=== PATIENT | female | born 1990 | race Caucasian/White ===

== ENCOUNTER 2017-08-03 15:01 | Outpatient (CLI) | payer OTHER | END 2017-08-03 15:02 | disposition critical access hospital (66) | LOC: EMS 15:01 | PROVIDERS: ATTEND Surgery | DX: R45.851 Suicidal ideations (principal) | CPT/HCPCS: A0425; A0429 ==

== ENCOUNTER 2017-08-03 15:25 | Emergency (ER) | payer OTHER ==
[2017-08-03 16:03] LABS: HCT - HEMATOCRIT 42.8 % (37.0-47.0); HGB - HEMOGLOBIN 14.6 g/dL (12.0-16.0); MEAN CORPUSCULAR HEMOGLOBIN 30.7 pg (27.0-31.0); MEAN CORPUSCULAR HGB CONC 34.1 g/dL (32.0-36.0); MEAN CORPUSCULAR VOLUME 89.9 fL (81.0-99.0); MEAN PLATELET VOLUME 7.6 fL (7.9-10.8); RED BLOOD COUNT 4.76 10^6/uL (4.20-5.40); RED CELL DISTRIBUTION WIDTH 13.9 % (12.0-15.0); WHITE BLOOD COUNT 10.6 x10^3/uL (4.8-10.8)
[2017-08-03 16:15] LABS: BILIRUBIN,URINE NEGATIVE (NEGATIVE); UA CHARGE (STRIP ONLY) YES; UR CULTURE IF IND NOT INDICATED
[2017-08-03 16:16] LABS: HCG UR QUAL NEGATIVE
[2017-08-03 16:18] LABS: ALBUMIN/GLOBULIN RATIO 1.4 (1.0-2.2); BILIRUBIN,TOTAL 0.7 mg/dL (0.2-1.0); BUN - BLOOD UREA NITROGEN 10 mg/dL (6-20); CALCIUM 9.7 mg/dL (8.5-10.3); CARBON DIOXIDE - CO2 23 mmol/L (21-32); CHLORIDE 99 mmol/L (101-111); CREATININE 0.7 mg/dL (0.4-1.0); GFR - MDRD 102 (>89); GLUCOSE 90 mg/dL (70-100); LIPASE 32 U/L (22-51); POTASSIUM 3.9 mmol/L (3.5-5.0); SALICYLATE < 6.0 mg/dL; SODIUM 136 mmol/L (135-145); TOTAL PROTEIN 8.1 g/dL (6.7-8.2)
[2017-08-03 17:00] LABS: ACETAMINOPHEN < 10 ug/mL (10-30)
--- NOTE | 2017-08-03 17:10 | ED Physician Documentation ---
PD HPI MHE - Stated complaint Stated Complaint: SI - Chief complaint Chief Complaint: MHE - History obtained from History obtained from: Patient - History of Present Illness Primary symptom: Suicidal ideation, Other (reactive depression) Timing - onset: Today (has had some depression and feeling lonely since moving here from her home state, following her new in the [place]. Has been here few months. Today he told her he wants a divorce. She was sad and he was worried about the degree of sadness. She denies suicidal direct statements and did not have plan level of ideation. No alcohol use.) Contributing factors: Sig other. No: Substance abuse - ETOH, Substance abuse - drugs Similar symptoms before: Has not had sx before Recently seen: Not recently seen Review of Systems Constitutional: denies: Fever Nose: denies: Rhinorrhea / runny nose, Congestion Throat: denies: Sore throat Cardiac: denies: Chest pain / pressure GI: denies: Nausea, Vomiting, Diarrhea, Bloody / black stool : denies: Missed period Skin: denies: Abrasion (s), Laceration (s) Psychiatric: reports: Depressed, Anxiety. denies: Suicidal, Homicidal, Delusions Endocrine: denies: Weight loss Immunocompromised: denies: Immunocompromised PD PAST MEDICAL HISTORY - Past Medical History Past Medical History: Yes Cardiovascular: None Neuro: None Endocrine/Autoimmune: Other Psych: Depression - Present Medications Home Medications: Ambulatory Orders Medication Instructions Recorded Confirmed metFORMIN [Glucophage] 750 mg PO DAILY 08/03/17 08/03/17 - Allergies Allergies/Adverse Reactions: Allergies Allergy/AdvReac Type Severity Reaction Status Date / Time iodine Allergy Edema Verified 08/03/17 15:36 - Social History Does the pt smoke?: No Smoking Status: Never smoker Does the pt drink ETOH?: No Does the pt have substance abuse?: No PD ED PE NORMAL - Vitals Vital signs reviewed: Yes - General General: Alert and oriented X 3, Well developed/nourished, Other (sad affect and somewhat tearful. Pleasant and conversant. ) - Neck Neck: Supple, no meningeal sign, No adenopathy, Thyroid normal - Cardiac Cardiac: RRR - Respiratory Respiratory: Clear bilaterally - Derm Derm: Normal color, Warm and dry - Neuro Neuro: Alert and oriented X 3, No motor deficit, Normal speech Eye Opening: Spontaneous Motor: Obeys Commands Verbal: Oriented GCS Score: 15 - Psych Psych: Normal affect. No: Normal mood (sad) Results - Vitals Vitals: Oxygen O2 Source Room air - Labs Labs: Laboratory Tests 08/03/17 08/03/17 08/03/17 15:57 15:57 16:01 WBC 10.6 RBC 4.76 Hgb 14.6 Hct 42.8 MCV 89.9 MCH 30.7 MCHC 34.1 RDW 13.9 Plt Count 240 MPV 7.6 L Sodium 136 Potassium 3.9 Chloride 99 L Carbon Dioxide 23 Anion Gap 14.0 H BUN 10 Creatinine 0.7 Estimated GFR (MDRD) 102 Glucose 90 Calcium 9.7 Total Bilirubin 0.7 AST 22 ALT 28 Alkaline Phosphatase 62 Total Protein 8.1 Albumin 4.7 Globulin 3.4 Albumin/Globulin Ratio 1.4 Lipase 32 Urine Color YELLOW Urine Clarity CLEAR Urine pH 6.0 Ur Specific [place] <=1.005 Urine Protein NEGATIVE Urine Glucose (UA) NEGATIVE Urine Ketones TRACE Urine Occult Blood NEGATIVE Urine Nitrite NEGATIVE Urine Bilirubin NEGATIVE Urine Urobilinogen 0.2 (NORMAL) Ur Leukocyte Esterase NEGATIVE Ur Microscopic Review NOT INDICATED Urine Culture Comments NOT INDICATED Urine HCG, Qual NEGATIVE Salicylates < 6.0 Urine Opiates Screen NEGATIVE Ur Oxycodone Screen NEGATIVE Urine Methadone Screen NEGATIVE Ur Propoxyphene Screen NEGATIVE Acetaminophen < 10 L Ur Barbiturates Screen NEGATIVE Ur Tricyclics Screen NEGATIVE Ur Phencyclidine Scrn NEGATIVE Ur Amphetamine Screen NEGATIVE U Methamphetamines Scrn NEGATIVE U Benzodiazepines Scrn NEGATIVE Urine Cocaine Screen NEGATIVE U Cannabinoids Screen NEGATIVE Ethyl Alcohol < 5.0 PD MEDICAL DECISION MAKING - ED course Complexity details: considered differential (depressed with ideation but no plan and has outlook for future plans. Seems reactive to situation. Talked on phone Crisis Line, and they set up phone calls over weekend and will get appt on Sunday. Patient okay with that and verbal agrees to no self-harm and will call Crisis Line if feeling more depressed. ), d/w patient Departure - Departure Disposition: Home, Self Care Clinical Impression: Reactive depression (situational) Depression Qualifiers: Depression Type: dysthymia Qualified Code(s): F34.1 - Dysthymic disorder Condition: Stable Record reviewed to determine appropriate education?: Yes Instructions: ED Depression Follow-Up: BREN Servin [Provider Group] Comments: Drink lots of fluids. You could use melatonin or Benadryl at night to help with sleep. Call the crisis line if you feel more stressed or any suicidal ideation so he can talk with them. They will call you tomorrow and Sunday for counseling at those times. I presume they will set up something for Sunday in in person appointment or contact the [facility] counseling services to set up an appointment otherwise. Return if worsening symptoms. No alcohol use. Some daily exercise can be helpful as well. Discharge Date/Time: 08/03/17 18:20
[2017-08-03 18:21] VITALS: BP 116/56
== END 2017-08-03 18:20 | disposition home or self-care (01) ==
LOC: ED 15:25
DX: F43.21 Adjustment disorder with depressed mood (principal); F34.1 Dysthymic disorder
CPT/HCPCS: 36415; 80053; 80306; 80307; 80320; 80329; 81001; 81003; 81025; 83690; 87086; 99283; 99284

== ENCOUNTER 2017-10-13 14:56 | Emergency (ER) | payer OTHER ==
[2017-10-13 15:40] LABS: BILIRUBIN,URINE NEGATIVE (NEGATIVE); GLUCOSE, URINE (UA) NEGATIVE (NEGATIVE); KETONES,URINE (UA) NEGATIVE (NEGATIVE); LEUKOCYTE ESTERASE, URINE NEGATIVE (NEGATIVE); NITRITE,URINE NEGATIVE (NEGATIVE); OCCULT BLOOD,URINE NEGATIVE (NEGATIVE); PH,URINE 6.5 PH (5.0-7.5); PROTEIN,URINE NEGATIVE (NEGATIVE); UROBILINOGEN,URINE 0.2 (NORMAL) E.U./dL (NORMAL)
[2017-10-13 15:46] LABS: CLARITY,URINE CLEAR (CLEAR)
[2017-10-13 15:51] LABS: BASOPHILS % (AUTO) 0.5 %; EOSINOPHILS # (AUTO) 0.2 10^3/uL (0.0-0.7); EOSINOPHILS % (AUTO) 2.2 %; LYMPHOCYTES # (AUTO) 2.4 10^3/uL (1.5-3.5); LYMPHOCYTES % (AUTO) 27.4 %; MEAN CORPUSCULAR HEMOGLOBIN 30.4 pg (27.0-31.0); MEAN CORPUSCULAR HGB CONC 33.8 g/dL (32.0-36.0); MEAN PLATELET VOLUME 7.9 fL (7.9-10.8); MONOCYTES # (AUTO) 0.8 10^3/uL (0.0-1.0); MONOCYTES % (AUTO) 9.3 %; NEUTROPHILS # (AUTO) 5.3 10^3/uL (1.5-6.6); NEUTROPHILS % (AUTO) 60.6 %; PLT - PLATELET COUNT 266 10^3/uL (130-450); RED BLOOD COUNT 4.29 10^6/uL (4.20-5.40); RED CELL DISTRIBUTION WIDTH 13.7 % (12.0-15.0); WHITE BLOOD COUNT 8.8 x10^3/uL (4.8-10.8)
--- NOTE | 2017-10-13 16:01 | ED Physician Documentation ---
History of Present Illness - Stated complaint Stated Complaint: 5 WKS/CRAMPS - Chief complaint Chief Complaint: Abd Pain - History obtained from History obtained from: Patient - History of Present Illness Timing: Today Pain level max: 3 Pain level now: 1 Improved by: time Worsened by: nothing - Additonal information Additional information: Patient is a 26-year-old female, 1 para 0 who took a recent home test which was positive. Today was breaking up a scuffle between her dogs when she felt mild cramping in her abdomen after this incident. The cramping has since resolved. She has had no vaginal bleeding or discharge. Now feels normal. Did not have any abdominal pain before the incident. Review of Systems Ten Systems: 10 systems reviewed and negative Constitutional: denies: Fever Nose: denies: Rhinorrhea / runny nose, Congestion Throat: denies: Sore throat Respiratory: denies: Cough GI: denies: Abdominal Pain, Nausea, Vomiting, Diarrhea : denies: Dysuria, Frequency, Hesitancy, Unable to Void, Incontinent, Vaginal bleeding Skin: denies: Rash Musculoskeletal: denies: Neck pain, Back pain Neurologic: denies: Headache PD PAST MEDICAL HISTORY - Past Medical History Cardiovascular: None Neuro: None Endocrine/Autoimmune: Other Psych: Depression - Present Medications Home Medications: Ambulatory Orders Medication Instructions Recorded Confirmed metFORMIN [Glucophage] 750 mg PO DAILY 08/03/17 08/03/17 - Allergies Allergies/Adverse Reactions: Allergies Allergy/AdvReac Type Severity Reaction Status Date / Time iodine Allergy Edema Verified 08/03/17 15:36 - Social History Does the pt smoke?: No Smoking Status: Never smoker Does the pt drink ETOH?: No Does the pt have substance abuse?: No PD ED PE NORMAL - Vitals Vital signs reviewed: Yes - General General: Alert and oriented X 3, No acute distress, Well developed/nourished - HEENT HEENT: Moist mucous membranes - Neck Neck: Supple, no meningeal sign - Cardiac Cardiac: RRR - Respiratory Respiratory: No respiratory distress, Clear bilaterally - Abdomen Abdomen: Soft, Non tender, Non distended - Back Back: No CVA TTP, No spinal TTP - Derm Derm: Warm and dry, No rash - Extremities Extremities: No edema - Neuro Neuro: Alert and oriented X 3 - Psych Psych: Normal mood, Normal affect Results - Vitals Vitals: Vital Signs - 24 hr 02/10/18 02/10/18 15:03 17:11 Temperature 37.1 C 37.1 C Heart Rate 71 60 Respiratory 18 16 Rate Blood Pressure 114/72 101/62 O2 Saturation 100 100 Oxygen O2 Source Room air - Labs Labs: Laboratory Tests 10/13/17 10/13/17 10/13/17 15:30 15:32 15:32 WBC 8.8 RBC 4.29 Hgb 13.0 Hct 38.6 MCV 90.0 MCH 30.4 MCHC 33.8 RDW 13.7 Plt Count 266 MPV 7.9 Neut # 5.3 Lymph # 2.4 [place] # 0.8 Eos # 0.2 Baso # 0.0 Absolute Nucleated RBC 0.00 Nucleated RBC % 0.0 Sodium Potassium Chloride Carbon Dioxide Anion Gap BUN Creatinine Estimated GFR (MDRD) Glucose Calcium Total Bilirubin AST ALT Alkaline Phosphatase Total Protein Albumin Globulin Albumin/Globulin Ratio Lipase HCG, Quant Urine Color YELLOW Urine Clarity CLEAR Urine pH 6.5 Ur Specific [place] 1.010 Urine Protein NEGATIVE Urine Glucose (UA) NEGATIVE Urine Ketones NEGATIVE Urine Occult Blood NEGATIVE Urine Nitrite NEGATIVE Urine Bilirubin NEGATIVE Urine Urobilinogen 0.2 (NORMAL) Ur Leukocyte Esterase NEGATIVE Ur Microscopic Review NOT INDICATED Urine Culture Comments NOT INDICATED Blood Type O POSITIVE 10/13/17 10/13/17 15:32 15:32 WBC RBC Hgb Hct MCV MCH MCHC RDW Plt Count MPV Neut # Lymph # [place] # Eos # Baso # Absolute Nucleated RBC Nucleated RBC % Sodium 137 Potassium 3.4 L Chloride 102 Carbon Dioxide 24 Anion Gap 11.0 BUN 7 Creatinine 0.7 Estimated GFR (MDRD) 102 Glucose 91 Calcium 9.4 Total Bilirubin 0.5 AST 33 ALT 75 H Alkaline Phosphatase 60 Total Protein 7.4 Albumin 4.3 Globulin 3.1 Albumin/Globulin Ratio 1.4 Lipase 30 HCG, Quant 1690.00 Urine Color Urine Clarity Urine pH Ur Specific [place] Urine Protein Urine Glucose (UA) Urine Ketones Urine Occult Blood Urine Nitrite Urine Bilirubin Urine Urobilinogen Ur Leukocyte Esterase Ur Microscopic Review Urine Culture Comments Blood Type PD MEDICAL DECISION MAKING - ED course Complexity details: reviewed results, re-evaluated patient, considered differential, d/w patient ED course: Patient is a 26-year-old female who presents to the emergency department with lower abdominal cramping after breaking up a fight between her dogs today. She recently found out she is . Her hCG is only 1690. Bedside ultrasound did not show any in the uterus visible at this time. She has not had any vaginal bleeding and the cramping has resolved. Will hold off on transvaginal imaging at this time and have her follow-up with her doctor for repeat hCG. She will return if she develops worsening cramping or vaginal bleeding. Patient counseled regarding signs and symptoms for which I believe and urgent re-evaluation would be necessary. Patient with good understanding of and agreement to plan and is comfortable going home at this time This document was made in part using voice recognition software. While efforts are made to proofread this document, sound alike and grammatical errors may occur. Departure - Departure Disposition: 01 Home, Self Care Clinical Impression: Qualifiers: Weeks of gestation: less than 8 weeks Qualified Code(s): Z3A.01 - Less than 8 weeks gestation of Condition: Good Instructions: ED Care Follow-Up: Jam Whalen MD [Primary Care Provider] - Within 1 week Comments: Your HCG is 1690 today, this is consistent with early . Return if you worsen including worsening pain or vaginal bleeding. Otherwise you should start on a vitamin and follow up with your doctor for further care. Discharge Date/Time: 10/13/17 17:23
[2017-10-13 16:08] LABS: ALBUMIN 4.3 g/dL (3.2-5.5); ALBUMIN/GLOBULIN RATIO 1.4 (1.0-2.2); BILIRUBIN,TOTAL 0.5 mg/dL (0.2-1.0); CALCIUM 9.4 mg/dL (8.5-10.3); CREATININE 0.7 mg/dL (0.4-1.0); TOTAL PROTEIN 7.4 g/dL (6.7-8.2)
[2017-10-13 17:12] VITALS: BP 101/62
== END 2017-10-13 17:23 | disposition home or self-care (01) ==
LOC: ED 14:56
DX: R10.30 Lower abdominal pain, unspecified (principal); Z3A.01 Less than 8 weeks gestation of pregnancy; O99.89 Other specified diseases and conditions complicating pregnancy, childbirth and the puerperium
CPT/HCPCS: 36415; 80053; 81001; 81003; 83690; 84702; 85025; 86900; 86901; 87086; 99283

== ENCOUNTER 2017-12-06 18:37 | Emergency (ER) | payer OTHER ==
[2017-12-06 19:21] LABS: BILIRUBIN,URINE NEGATIVE (NEGATIVE); GLUCOSE, URINE (UA) NEGATIVE (NEGATIVE); KETONES,URINE (UA) NEGATIVE (NEGATIVE); LEUKOCYTE ESTERASE, URINE TRACE (NEGATIVE); NITRITE,URINE NEGATIVE (NEGATIVE); OCCULT BLOOD,URINE NEGATIVE (NEGATIVE); PROTEIN,URINE NEGATIVE (NEGATIVE); UROBILINOGEN,URINE 0.2 (NORMAL) E.U./dL (NORMAL)
[2017-12-06 19:23] LABS: CLARITY,URINE CLEAR (CLEAR); HCG UR QUAL POSITIVE
[2017-12-06 19:33] LABS: BACTERIA,URINE Few /HPF (None Seen); RBC,URINE None Seen /HPF (0-5); SQUAMOUS EPITHELIAL CELL,UR MANY Squamous (<= Few)
[2017-12-06] MEDS ORDERED: NITROFURANTOIN MACRO 100 MG CAPSULE PO STA (20:28)
--- NOTE | 2017-12-06 20:40 | ED Physician Documentation ---
PD HPI FEMALE - Stated complaint Stated Complaint: NIGHT SWEATS - Chief complaint Chief Complaint: General - History obtained from History obtained from: Patient - History of Present Illness Timing - onset: How many weeks ago (1) Timing - details: Intermittant Associated symptoms: Urinary frequency. No: Fever, Abdominal pain, Pelvic pain , Vaginal bleeding Contributing factors: OB-FLIGHT AGENT History: G (1), P (0) Recently seen: Not recently seen - Additional information Additional information: patient is a 27 year old female who is presenting to the emergency department for intermittent sweats and dizziness as well as cloudy urine. Patient was found to have a blood glucose of 60 in triage and was treated with orange juice. Patient states that she is on metformin 750 mg for pecos. Patient told her pmd about the dizzy spells but told it was likely her hormones. Review of Systems Constitutional: reports: Fever, Sweats Eyes: reports: Reviewed and negative Ears: reports: Reviewed and negative Nose: reports: Reviewed and negative Throat: reports: Reviewed and negative Cardiac: denies: Chest pain / pressure, Palpitations Respiratory: denies: Dyspnea, Cough GI: denies: Abdominal Pain, Nausea, Vomiting, Constipation, Diarrhea : reports: Dysuria, Frequency Skin: denies: Rash, Lesions Musculoskeletal: reports: Back pain Neurologic: denies: Generalized weakness, Focal weakness, Syncope Immunocompromised: denies: Immunocompromised PD PAST MEDICAL HISTORY - Past Medical History Cardiovascular: None Neuro: None Endocrine/Autoimmune: Other Psych: Depression - Present Medications Home Medications: Ambulatory Orders Medication Instructions Recorded Confirmed metFORMIN [Glucophage] 750 mg PO DAILY 08/03/17 08/03/17 Nitrofurantoin Monohyd/M-Cryst 100 mg PO BID 5 Days capsule 12/06/17 [Macrobid 100 mg Capsule] Pnv95/Ferrous Fumarate/FA 12/06/17 12/06/17 [ Tablet] - Allergies Allergies/Adverse Reactions: Allergies Allergy/AdvReac Type Severity Reaction Status Date / Time iodine Allergy Edema Verified 08/03/17 15:36 - Social History Does the pt smoke?: No Smoking Status: Never smoker Does the pt drink ETOH?: No Does the pt have substance abuse?: No PD ED PE NORMAL - Vitals Vital signs reviewed: Yes - General General: Alert and oriented X 3, No acute distress - HEENT HEENT: Atraumatic, PERRL - Neck Neck: Supple, no meningeal sign - Cardiac Cardiac: RRR, No murmur - Respiratory Respiratory: No respiratory distress - Abdomen Abdomen: Soft - Derm Derm: Normal color, No rash - Extremities Extremities: No deformity - Neuro Neuro: Alert and oriented X 3, No motor deficit, Normal speech Eye Opening: Spontaneous Motor: Obeys Commands Verbal: Oriented GCS Score: 15 Results - Vitals Vitals: Vital Signs - 24 hr 12/06/17 12/06/17 18:41 20:43 Temperature 36.6 C 36.9 C Heart Rate 71 80 Respiratory 16 18 Rate Blood Pressure 119/58 L 122/63 O2 Saturation 100 99 Oxygen O2 Source Room air - Labs Labs: Laboratory Tests 12/06/17 12/06/17 19:00 20:17 POC Whole Bld Glucose 88 Urine Color YELLOW Urine Clarity CLEAR Urine pH 6.0 Ur Specific [place] 1.015 Urine Protein NEGATIVE Urine Glucose (UA) NEGATIVE Urine Ketones NEGATIVE Urine Occult Blood NEGATIVE Urine Nitrite NEGATIVE Urine Bilirubin NEGATIVE Urine Urobilinogen 0.2 (NORMAL) Ur Leukocyte Esterase TRACE H Urine RBC None Seen Urine WBC 0-3 Ur Squamous Epith Cells MANY Squamous H Urine Bacteria Few Ur Microscopic Review INDICATED Urine Culture Comments NOT INDICATED Urine HCG, Qual POSITIVE Procedures - Bedside sono Bedside sono by EMP: well appearing, active IUP PD MEDICAL DECISION MAKING - ED course Complexity details: reviewed old records, reviewed results, re-evaluated patient , considered differential, d/w patient ED course: Patient was seen and examined at bedside. urine was collected. patient's repeat blood glucose was 88. patient's urine was consistent with uti. patient was started on macrobid 100mg. bedside ultrasound was performed and showed a viable IUP. A lengthy discussion was had with the patient about better blood sugar control and decreasing the amount of metformin because she was probably suffering from hypoglycemia. Patient was well appearing, able to tolerate PO. patient required no further work up and was stable for discharge with outpatient follow up. Departure - Departure Disposition: 01 Home, Self Care Clinical Impression: Urinary tract infection Condition: Good Instructions: ED UTI Cystitis Female Follow-Up: primary,care provider [Other] - Within 3 Days Prescriptions: Nitrofurantoin Monohyd/M-Cryst [Macrobid 100 mg Capsule] 100 mg PO BID 5 Days capsule Comments: Your symptoms are being caused by likely two things, a urinary tract infection and low blood sugar. You should increase your fluid intake and take the antibiotics twice a day for the next 5 days. You should also decrease your metformin to 500 mg a day or take the 750mg every other day. You should also increase your caloric intake. You should follow up with your pmd. You may return to the emergency department at any time for new, worsening or uncontrollable symptoms. Discharge Date/Time: 12/06/17 20:43
[2017-12-06 20:44] VITALS: BP 122/63
== END 2017-12-06 20:43 | disposition home or self-care (01) ==
LOC: ED 18:37
DX: O23.40 Unspecified infection of urinary tract in pregnancy, unspecified trimester (principal); O99.280 Endocrine, nutritional and metabolic diseases complicating pregnancy, unspecified trimester; E16.2 Hypoglycemia, unspecified; Z79.84 Long term (current) use of oral hypoglycemic drugs
CPT/HCPCS: 81001; 81025; 99283; A9270; 81003; 87086

== ENCOUNTER 2018-01-04 14:44 | Emergency (ER) | payer OTHER ==
[2018-01-04 14:52] VITALS: BP 123/72
--- NOTE | 2018-01-04 15:05 | ED Physician Documentation ---
History of Present Illness - Stated complaint Stated Complaint: FEMALE /16WK OB - Chief complaint Chief Complaint: Abd Pain - History obtained from History obtained from: Patient, Family - History of Present Illness Timing: Other (G1 at 16 weeks gestation without problems in this so far presents with 2 days of sore throat and about 4 days of bilateral flank pain and dysuria and frequency without measured fevers. No nausea.) Review of Systems Constitutional: reports: Sweats. denies: Fever, Chills Nose: reports: Rhinorrhea / runny nose Throat: reports: Sore throat GI: denies: Abdominal Pain, Nausea, Vomiting, Diarrhea PD PAST MEDICAL HISTORY - Past Medical History Cardiovascular: None Neuro: None Endocrine/Autoimmune: Other Psych: Depression - Present Medications Home Medications: Ambulatory Orders Medication Instructions Recorded Confirmed Pnv95/Ferrous Fumarate/FA 12/06/17 12/06/17 [ Tablet] - Allergies Allergies/Adverse Reactions: Allergies Allergy/AdvReac Type Severity Reaction Status Date / Time iodine Allergy Edema Verified 01/04/18 14:51 - Social History Does the pt smoke?: No Smoking Status: Never smoker Does the pt drink ETOH?: No Does the pt have substance abuse?: No PD ED PE NORMAL - Vitals Vital signs reviewed: Yes - General General: Alert and oriented X 3, No acute distress - HEENT HEENT: Other (Tonsils look okay but she does have moderate anterior cervical adenopathy, TMs are normal.) - Neck Neck: Supple, no meningeal sign, No bony TTP - Cardiac Cardiac: RRR, No murmur - Respiratory Respiratory: No respiratory distress, Clear bilaterally - Abdomen Abdomen: Normal bowel sounds, Soft, Non tender - Female Female : Other (Bedside ultrasound demonstrates single live intrauterine with heart rate of 150) - Derm Derm: No rash - Extremities Extremities: No edema, No calf tenderness / cord - Neuro Neuro: Alert and oriented X 3, Normal speech Results - Vitals Vitals: Vital Signs - 24 hr 01/04/18 14:49 Temperature 36.3 C L Heart Rate 73 Respiratory 16 Rate Blood Pressure 123/72 O2 Saturation 100 Oxygen O2 Source Room air - Labs Labs: Laboratory Tests 01/04/18 15:00 Urine Color YELLOW Urine Clarity CLEAR Urine pH 6.0 Ur Specific [place] 1.015 Urine Protein NEGATIVE Urine Glucose (UA) NEGATIVE Urine Ketones NEGATIVE Urine Occult Blood NEGATIVE Urine Nitrite NEGATIVE Urine Bilirubin NEGATIVE Urine Urobilinogen 0.2 (NORMAL) Ur Leukocyte Esterase NEGATIVE Ur Microscopic Review NOT INDICATED Urine Culture Comments NOT INDICATED Departure - Departure Disposition: 01 Home, Self Care Clinical Impression: Viral URI Qualifiers: Weeks of gestation: 16 weeks Qualified Code(s): Z3A.16 - 16 weeks gestation of Condition: Good Record reviewed to determine appropriate education?: Yes Instructions: ED Viral Syndrome Comments: Tylenol as needed for pain or fever. Drink plenty of fluids. Return if worsening or new symptoms develop.
[2018-01-04 15:22] LABS: BILIRUBIN,URINE NEGATIVE (NEGATIVE); GLUCOSE, URINE (UA) NEGATIVE (NEGATIVE); KETONES,URINE (UA) NEGATIVE (NEGATIVE); LEUKOCYTE ESTERASE, URINE NEGATIVE (NEGATIVE); NITRITE,URINE NEGATIVE (NEGATIVE); OCCULT BLOOD,URINE NEGATIVE (NEGATIVE); PROTEIN,URINE NEGATIVE (NEGATIVE); UROBILINOGEN,URINE 0.2 (NORMAL) E.U./dL (NORMAL)
[2018-01-04 15:23] LABS: CLARITY,URINE CLEAR (CLEAR)
== END 2018-01-04 15:54 | disposition home or self-care (01) ==
LOC: ED 14:44
DX: J06.9 Acute upper respiratory infection, unspecified (principal); O26.892 Other specified pregnancy related conditions, second trimester; Z3A.16 16 weeks gestation of pregnancy
CPT/HCPCS: 81001; 81003; 87070; 87086; 87430; 99282; 99283

== ENCOUNTER 2018-01-14 08:00 | Outpatient (CLI) | payer OTHER ==
[2018-01-14 13:30] LABS: THYROID STIMULATING HORMONE 1.8 uIU/mL (0.34-5.60)
[2018-01-14 13:34] LABS: FREE T4 (FREE THYROXINE) 0.5 ng/dL (0.58-1.64); HEMOGLOBIN A1C 0.39 g/dL; HEMOGLOBIN A1C % 4.9 % (4.6-6.2)
[2018-01-14 14:40] LABS: MEAN CORPUSCULAR HEMOGLOBIN 30.3 pg (27.0-31.0); MEAN CORPUSCULAR HGB CONC 33.3 g/dL (32.0-36.0); MEAN PLATELET VOLUME 8.7 fL (7.9-10.8); RED BLOOD COUNT 3.95 10^6/uL (4.20-5.40); RED CELL DISTRIBUTION WIDTH 14.7 % (12.0-15.0)
== END 2018-01-14 08:01 | disposition home or self-care (01) ==
LOC: LAB.N 08:00
PROVIDERS: ATTEND Obstetrics & Gynecology
DX: Z36.89 Encounter for other specified antenatal screening (principal)
CPT/HCPCS: 36415; 81599; 82105; 82677; 82947; 82950; 83036; 84439; 84443; 84481; 84702; 85027; 86336

== ENCOUNTER 2018-01-25 07:38 | Outpatient (CLI) | payer OTHER ==
--- NOTE | 2018-01-25 14:40 | Ultrasound Report ---
OB ULTRASOUND: 01/25/2018 CLINICAL INDICATION: anatomy. TECHNIQUE: Real-time scanning was performed with workforce services representative static images obtained. LAST MENSTRUAL PERIOD: 09/06/2017 Clinical Age: 20 weeks 1 day US Age: 20 weeks 4 days EFW [place]: 355 grams EFW% [place]: 63% Heart Rate: 146 bpm EDC: 06/13/2018 US EDC: 06/10/2018 BPD [place]: 21 weeks 0 days; Mean mm 49 HC Had[place]: 20 weeks 4 days; Mean mm 181 AC Hadlock: 20 weeks 5 days; Mean mm 155 FL Had[place]: 20 weeks 1 day; Mean mm 32 Presentation: cephalic Placental Location: posterior Cervical Length: TA 4.68 cm Amniotic Fluid: KEMI 14.6 cm; subjectively normal; MVP 4.4 cm FINDINGS There is a single viable intrauterine gestation, in cephalic presentation. heart rate is 146 BPM. The placenta is posterior, without evidence of previa. Amniotic fluid volume is subjectively normal with the deepest pocket of 4.4 cm. By size, the fetus measures 20 weeks 4 days (20 weeks 1 day provided DATA) the normal limbs. The following anatomic structures were visualized and appear normal: The intracranial contents, including the ventricles and posterior fossa; the lips and orbits; the spine; the heart, including 4 chamber view and left ventricular outflow tract, and diaphragm; the abdominal contents, including the stomach, the bilateral kidneys, and urinary bladder, as well as a normal 3-vessel cord insertion; 4 limbs. The right ventricular outflow tract is suboptimally visualized, due to positioning. No free fluid or adnexal lesion is appreciated. IMPRESSION: SINGLE VIABLE INTRAUTERINE GESTATION, WITH SIZE IN KEEPING WITH THE PROVIDED DATING. SUBOPTIMAL VISUALIZATION OF THE RIGHT VENTRICULAR OUTFLOW TRACT, DUE TO POSITIONING, BUT THE REMAINDER OF THE ANATOMIC SURVEY IS UNREMARKABLE. TD: 01/25/2018 10:15 [facility]
== END 2018-01-25 07:39 | disposition home or self-care (01) ==
LOC: DI 07:38
PROVIDERS: ATTEND Obstetrics & Gynecology
DX: Z36.89 Encounter for other specified antenatal screening (principal)
CPT/HCPCS: 76811

== ENCOUNTER 2018-03-12 14:22 | Outpatient (CLI) | payer OTHER ==
[2018-03-12 16:00] LABS: BASOPHILS % (AUTO) 0.2 %; EOSINOPHILS % (AUTO) 1.3 %; HGB - HEMOGLOBIN 12.3 g/dL (12.0-16.0); LYMPHOCYTES % (AUTO) 16.3 %; MEAN CORPUSCULAR HEMOGLOBIN 31.7 pg (27.0-31.0); MEAN CORPUSCULAR HGB CONC 33.5 g/dL (32.0-36.0); MEAN CORPUSCULAR VOLUME 94.7 fL (81.0-99.0); MEAN PLATELET VOLUME 7.8 fL (7.9-10.8); NEUTROPHILS % (AUTO) 75.2 %; PLT - PLATELET COUNT 249 10^3/uL (130-450); RED BLOOD COUNT 3.89 10^6/uL (4.20-5.40); RED CELL DISTRIBUTION WIDTH 14.6 % (12.0-15.0); WHITE BLOOD COUNT 10.9 x10^3/uL (4.8-10.8)
[2018-03-12 16:04] LABS: ABNORMAL LYMPHS % (MANUAL) 0 %
[2018-03-12 16:21] LABS: BAND NEUTROPHILS % (MANUAL) 2 %; DIFFERENTIAL COMMENT MANUAL DIFFERENTIAL; LYMPHOCYTES # (MANUAL) 1.6 10^3/uL (1.5-3.5); LYMPHOCYTES % (MANUAL) 15 %; MONOCYTES # (MANUAL) 0.2 10^3/uL (0.0-1.0); NEUTROPHILS % (MANUAL) 81 %; PLATELET ESTIMATE, MANUAL NORMAL (130-450,000) (NORMAL); PLATELET MORPHOLOGY NORMAL APPEARANCE (NORMAL); RBC MORPHOLOGY (MULTIPLE) NORMAL APPEARANCE (NORMAL)
== END 2018-03-12 14:23 | disposition home or self-care (01) ==
LOC: LAB 14:22
PROVIDERS: ATTEND Obstetrics & Gynecology
DX: Z34.90 Encounter for supervision of normal pregnancy, unspecified, unspecified trimester (principal)
CPT/HCPCS: 36415; 82950; 85025; 86850

== ENCOUNTER 2018-04-18 08:48 | Outpatient (CLI) | payer OTHER ==
--- NOTE | 2018-04-18 16:33 | Ultrasound Report ---
Procedure Date: 04/18/2018 Accession Number: [id number] / [id number] Procedure: US - OB F/U or Repeat CPT Code: FULL RESULT: EXAM: COMPLETE OBSTETRICAL ULTRASOUND. EXAM DATE: 04/18/2018 10:04 AM. CLINICAL HISTORY: Completion of anatomic survey, previously the right ventricular outflow tract was not adequately visualized. COMPARISON: 01/25/2018. TECHNIQUE: Real-time sonographic evaluation of the fetus performed by the rehab care assistant. Multiple medical service representative static images were saved for review. DATING: Established EGA weeks/days with MICKI 06/10/2018 based on first ultrasound dated 01/25/2018. EGA weeks/days with MICKI 05/27/2018 based on the current ultrasound. GENERAL EVALUATION [place] . Cardiac activity: 152 bpm. movement: Visualized. Presentation: Cephalic. Placenta: Posterior and anterior wrap near fundus position. No evidence for previa. Umbilical cord: 3 vessel cord. Central placental cord origin. Amniotic fluid: Subjectively normal. MVP 5.3 cm. BIOMETRY Bi-Parietal Diameter (BPD): 8.8 cm, weeks/days Head Circumference (HC): 31.5 cm, weeks/days Abdominal Circumference (AC): 31.4 cm, weeks/days Femur Length (FL): 6.2 cm, weeks/days Estimated Weight: 2454 gm. ANATOMY Completion of the anatomy survey was performed with good visualization of the right ventricular outflow tract which appeared normal. MATERNAL STRUCTURES Uterus: Unremarkable. Cervix: Long and closed. Transabdominal length 3.4 cm. Right ovary/adnexa: Unremarkable. Left ovary/adnexa: 3.9 x 2.6 x 2.5 cm cyst. Free fluid: None. IMPRESSION: 1. [place] live intrauterine with gestational age weeks/days based on the current ultrasound. 2. Estimated weight is within expected limits for assigned dating. 3. Normal right ventricular outflow tract. No anatomic abnormalities are detected at this time. RADIA
== END 2018-04-18 08:49 | disposition home or self-care (01) ==
LOC: DI 08:48
PROVIDERS: ATTEND Obstetrics & Gynecology
DX: Z36.2 Encounter for other antenatal screening follow-up (principal)
CPT/HCPCS: 76816

== ENCOUNTER 2018-04-30 23:11 | Outpatient (CLI) | payer OTHER ==
[2018-04-30 23:35] LABS: BILIRUBIN,URINE NEGATIVE (NEGATIVE); GLUCOSE, URINE (UA) NEGATIVE (NEGATIVE); KETONES,URINE (UA) NEGATIVE (NEGATIVE); LEUKOCYTE ESTERASE, URINE NEGATIVE (NEGATIVE); NITRITE,URINE NEGATIVE (NEGATIVE); OCCULT BLOOD,URINE NEGATIVE (NEGATIVE); PROTEIN,URINE NEGATIVE (NEGATIVE); UROBILINOGEN,URINE 0.2 (NORMAL) E.U./dL (NORMAL)
[2018-04-30 23:36] LABS: CLARITY,URINE CLEAR (CLEAR)
[2018-04-30 23:40] VITALS: BP 130/69
[2018-04-30 23:41] LABS: BACTERIA,URINE Rare /HPF (None Seen); RBC,URINE 0-5 /HPF (0-5); SQUAMOUS EPITHELIAL CELL,UR FEW Squamous (<= Few)
[2018-05-01] MEDS ORDERED: TERBUTALINE 1 MG/ML VIAL SUBQ ONE (01:16)
== END 2018-05-01 02:30 | disposition home or self-care (01) ==
LOC: WFO 23:11 → FBP 23:13 → WFO 05-01 02:30
PROVIDERS: ATTEND Obstetrics & Gynecology
DX: O99.89 Other specified diseases and conditions complicating pregnancy, childbirth and the puerperium (principal); M54.9 Dorsalgia, unspecified; R14.0 Abdominal distension (gaseous); Z3A.33 33 weeks gestation of pregnancy
CPT/HCPCS: 81001; 82731; 87086; 96372; 99213

== ENCOUNTER 2018-05-09 15:41 | Outpatient (CLI) | payer OTHER ==
[2018-05-09 16:12] LABS: BILIRUBIN,URINE NEGATIVE (NEGATIVE); GLUCOSE, URINE (UA) NEGATIVE (NEGATIVE); KETONES,URINE (UA) NEGATIVE (NEGATIVE); LEUKOCYTE ESTERASE, URINE NEGATIVE (NEGATIVE); NITRITE,URINE NEGATIVE (NEGATIVE); OCCULT BLOOD,URINE NEGATIVE (NEGATIVE); PROTEIN,URINE NEGATIVE (NEGATIVE); UROBILINOGEN,URINE 0.2 (NORMAL) E.U./dL (NORMAL)
[2018-05-09 16:14] LABS: BASOPHILS % (AUTO) 0.4 %; EOSINOPHILS % (AUTO) 1.2 %; LYMPHOCYTES % (AUTO) 17.1 %; MEAN CORPUSCULAR HEMOGLOBIN 30.7 pg (27.0-31.0); MEAN CORPUSCULAR HGB CONC 33.8 g/dL (32.0-36.0); MEAN CORPUSCULAR VOLUME 90.8 fL (81.0-99.0); MEAN PLATELET VOLUME 8.4 fL (7.9-10.8); MONOCYTES % (AUTO) 11.7 %; NEUTROPHILS % (AUTO) 69.6 %; PLT - PLATELET COUNT 233 10^3/uL (130-450); RED BLOOD COUNT 4.22 10^6/uL (4.20-5.40); RED CELL DISTRIBUTION WIDTH 14.5 % (12.0-15.0); WHITE BLOOD COUNT 9.5 x10^3/uL (4.8-10.8)
[2018-05-09 16:16] LABS: CREATININE 0.6 mg/dL (0.4-1.0); URIC ACID 3.5 mg/dL (2.6-7.2)
[2018-05-09 16:22] LABS: CREATININE,URINE 75.8 mg/dL; PROTEIN/CREATININE RATIO,URINE 0.2 (<=0.2)
[2018-05-09 16:31] LABS: BACTERIA,URINE None Seen /HPF (None Seen); CLARITY,URINE CLEAR (CLEAR); RBC,URINE None Seen /HPF (0-5); SQUAMOUS EPITHELIAL CELL,UR MOD Squamous (<= Few)
[2018-05-09 17:07] LABS: ABNORMAL LYMPHS % (MANUAL) 0 %; BAND NEUTROPHILS % (MANUAL) 2 %; EOSINOPHILS # (MANUAL) 0.3 10^3/uL (0-0.7); LYMPHOCYTES % (MANUAL) 7 %; MONOCYTES # (MANUAL) 1.6 10^3/uL (0.0-1.0); NEUTROPHILS # (MANUAL) 6.6 10^3/uL (1.5-6.6); NEUTROPHILS % (MANUAL) 67 %
[2018-05-09 17:08] LABS: DIFFERENTIAL COMMENT MANUAL DIFFERENTIAL; PLATELET ESTIMATE, MANUAL NORMAL (130-450,000) (NORMAL); PLATELET MORPHOLOGY NORMAL APPEARANCE (NORMAL); RBC MORPHOLOGY (MULTIPLE) 1+ POLYCHROMASIA (NORMAL)
== END 2018-05-09 15:42 | disposition home or self-care (01) ==
LOC: LAB 15:41
PROVIDERS: ATTEND Obstetrics & Gynecology
DX: Z36.88 Encounter for antenatal screening for fetal macrosomia (principal); Z36.9 Encounter for antenatal screening, unspecified
CPT/HCPCS: 36415; 81001; 82565; 82570; 83615; 84156; 84450; 84550; 85025

== ENCOUNTER 2018-05-10 08:00 | Outpatient (CLI) | payer OTHER | END 2018-05-10 08:01 | disposition home or self-care (01) | LOC: LAB.R 08:00 | PROVIDERS: ATTEND Obstetrics & Gynecology | DX: Z36.85 Encounter for antenatal screening for Streptococcus B (principal) | CPT/HCPCS: 87797 ==

== ENCOUNTER 2018-05-15 09:16 | Outpatient (CLI) | payer OTHER ==
--- NOTE | 2018-05-15 14:15 | Ultrasound Report ---
Reason: ENCOUNTER FOR SCREENING FOR MACROS Procedure Date: 05/15/2018 Accession Number: [id number] / [id number] Procedure: US - OB F/U or Repeat CPT Code: FULL RESULT: EXAM: LIMITED FOLLOW-UP OBSTETRIC ULTRASOUND EXAM DATE: 05/15/2018 10:31 AM. CLINICAL HISTORY: Size greater than dates COMPARISON: None. TECHNIQUE: Real-time sonographic evaluation of the fetus performed by the coldfusion. Multiple employment program representative static images were saved for review. DATING: Established EGA 32 weeks 0 days with MICKI 06/13/2018 based on LMP. EGA 36 weeks 2 days with MICKI 06/10/2018 based on prior ultrasound. EGA 39 weeks 3 days with MICKI 05/19/2018 based on the current ultrasound. GENERAL EVALUATION [place] . Cardiac activity: 154 bpm. movement: Visualized. Presentation: Cephalic. Placenta: Posterior fundal position. No evidence for previa. Amniotic fluid: Subjectively normal. MVP 3.7 cm. BIOMETRY Bi-Parietal Diameter (BPD): 9.8 cm, 40 weeks 0 days Head Circumference (HC): 34.6 cm, 40 weeks 1 day Abdominal Circumference (AC): 37.9 cm, 41 weeks 6 days Femur Length (FL): 6.9 cm, 35 weeks 3 days Estimated Weight: 4024 gm, greater than 97th percentile. Maternal: Adnexae unremarkable. No free fluid. Cervix 3.9 cm. IMPRESSION: 1. [place] live intrauterine with gestational age 39 weeks 3 days based on current ultrasound. 2. EGA 36 weeks 2 days based on ultrasound 01/25/2018 3. Estimated weight greater than 97th percentile, concerning for possible macrosomia. May consider subspecialty consultation as indicated. RADIA
== END 2018-05-15 09:17 | disposition home or self-care (01) ==
LOC: DI 09:16
PROVIDERS: ATTEND Obstetrics & Gynecology
DX: Z36.88 Encounter for antenatal screening for fetal macrosomia (principal); Z3A.39 39 weeks gestation of pregnancy
CPT/HCPCS: 76816

== ENCOUNTER 2018-05-30 14:16 | Outpatient (CLI) | payer OTHER ==
[2018-05-30 14:33] VITALS: BP 134/76
--- NOTE | 2018-05-30 18:01 | Ultrasound Report ---
Reason: uterine size greater than dates Procedure Date: 05/30/2018 Accession Number: [id number] / [id number] Procedure: US - OB F/U or Repeat CPT Code: FULL RESULT: EXAM: OB ULTRASOUND LIMITED EXAM DATE: 05/30/2018 04:43 PM. CLINICAL HISTORY: Size greater than dates. COMPARISON: OB follow-up or repeat 05/15/2018 10:10 AM. TECHNIQUE: Real-time sonographic evaluation of the fetus performed by the credit risk management director. Multiple direct sales representative static images were saved for review. Additional transvaginal imaging to more accurately evaluate cervical length/placental position/etc. DATING: Established EGA 38 weeks, 0 days with MICKI 06/13/18 based on LMP. EGA 39 weeks, 4 days with MICKI 06/02/18 based on the current ultrasound. GENERAL EVALUATION [place] . Cardiac activity: 137 bpm. movement: Visualized. Presentation: Cephalic. Placenta: Posterior fundal position. Amniotic fluid: KEMI measures 17 cm. MVP 6.7 cm. Within normal limits. BIOMETRY Bi-Parietal Diameter (BPD): 10.0 cm, 41 weeks, 5 days. Head Circumference (HC): 36.1 cm, greater than 98%. Abdominal Circumference (AC): 41.1 cm, greater than 98%. Femur Length (FL): 7.3 cm, 37 weeks, 3 days. Estimated Weight: 4998 gm, greater than 97% percentile. IMPRESSION: 1. Single living intrauterine measuring 39 weeks 4 days based on today's ultrasound, MICKI 06/02/2018. Established EGA is 38 weeks 0 days, MICKI 06/13/2018. Estimated Weight: 4998 gm, greater than 97% percentile. Head circumference and abdominal circumference measure greater than the 98th percentile. RADIA
== END 2018-05-30 18:07 | disposition home or self-care (01) ==
LOC: WFO 14:16 → FBP 14:19 → WFO 18:07
PROVIDERS: ATTEND Obstetrics & Gynecology
DX: O36.63X0 Maternal care for excessive fetal growth, third trimester, not applicable or unspecified (principal); Z3A.38 38 weeks gestation of pregnancy
CPT/HCPCS: 59025; 76816; 87491; 87591; 99214

== ENCOUNTER 2018-06-07 05:32 | Inpatient (IN) | payer OTHER ==
--- NOTE | 2018-05-30 19:49 | PREOP HISTORY & PHYSICAL ---
DATE OF SERVICE: 06/07/2018 Physician: Ellie Rodarte MD PREOPERATIVE HISTORY AND PHYSICAL 05/30/2018 FOR DATE OF PLANNED PROCEDURE OF 06/07/2018. CHIEF COMPLAINT: Big. HISTORY OF PRESENT ILLNESS: The patient has been measuring large for dates in clinic. Two weeks ago, she was found to be carrying a 9-pound fetus. Today at 38 weeks, she was measuring 44 cm, and so she was sent to triage for further evaluation. An ultrasound today, 05/30/2018, reveals a fetus that is 4998 grams, 11 pounds. This is greater than the 97th percentile. Her amniotic fluid index was 10 with a maximal vertical pocket of 6 and the fetus is in vertex presentation. REVIEW OF SYSTEMS: No vaginal bleeding. No leaking of water. Good movement. She is feeling some irregular contractions. PAST MEDICAL HISTORY 1. Obesity. 2. PCOS. 3. Anxiety. PAST SURGICAL HISTORY: [place] teeth. ALLERGIES: IODINE CAUSES THROAT SWELLING. NO MEDICATION ALLERGIES. NO LATEX ALLERGY. SOCIAL HISTORY: No tobacco, alcohol, or drug use. The patient is to a gentleman in the [place]. FAMILY HISTORY: No anesthesia problems. OB HISTORY: The patient is a G1, P0 with a due date of 06/13/2018 by an LMP consistent with a 19-week ultrasound. She did not have care until her 18th week of . Her has been uncomplicated other than the large baby. Her anatomy ultrasound was normal. LABORATORY: Data include blood type O positive, antibody screen negative, rubella immune. Quad screen normal 1 hour 09/30/2017. Second trimester platelets 217. TSH 1.8. Negative HIV, negative hepatitis B, negative RPR. PHYSICAL EXAMINATION GENERAL: Patient is afebrile with normal vital signs. She is alert and pleasant, in no apparent distress. She appears very large for dates. HEART: Regular rate and rhythm without clicks, rubs, gallops, or murmurs. CHEST: Lungs are clear to auscultation bilaterally. ABDOMEN: Soft and nontender. IMPRESSION AND PLAN: G1 with macrosomia. She is not diabetic and had a normal 1-hour glucose tolerance test despite her having PCOS. The fetus is measuring 5 kg. The patient was offered primary section in attempt to avoid risks related to shoulder dystocia and complications from that including oxygen deprivation to the brain causing permanent neurological problems or . She is aware that she can have a trial of labor should she choose to, but sometimes we do not know that things are going to be wrong until after the baby's head is out. She, herself, was a 10-pound baby at , and her mother had a very difficult time with this. Both the patient and her mother are really wanting to go ahead with a primary . The surgery was described. Risks including, but not limited to bleeding; infection; trauma to local organs, anesthesia complications and problems with future pregnancies because of scar tissue on the uterus were discussed. The patient was initially wanting 4 children. Now, she is thinking about having more like 2. She is aware that the increased number of C-sections does increase her risk. We reviewed the postoperative course. All questions were answered and operative consent was signed. We will plan to go to the operating room on 06/07/2018 when the patient is 39 weeks and 1 day. There are no potential problems identified except for an increased risk of wound infection, which the patient is aware of. She has had her Tdap vaccine and her flu shot. She is O positive and rubella immune. TD: 05/30/2018 18:30 IRMA
[2018-06-07] MEDS ORDERED: ceFAZolin 2 GM/50 ML 2 GM/50 ML BAG IV SCH (06:00)
[2018-06-07] MEDS ORDERED: LACTATED RINGERS 1,000 ML IV ONE ×3 (06:30→09:20)
[2018-06-07] MEDS ORDERED: SODIUM CHLORIDE FLUSH 0.9% 10 ML SYRINGE ONE (06:34)
[2018-06-07 07:17] LABS: BASOPHILS # (AUTO) 0.1 10^3/uL (0.0-0.1); BASOPHILS % (AUTO) 0.5 %; EOSINOPHILS # (AUTO) 0.1 10^3/uL (0.0-0.7); EOSINOPHILS % (AUTO) 1.3 %; HGB - HEMOGLOBIN 12.7 g/dL (12.0-16.0); LYMPHOCYTES # (AUTO) 1.7 10^3/uL (1.5-3.5); LYMPHOCYTES % (AUTO) 17.1 %; MEAN CORPUSCULAR HEMOGLOBIN 30.8 pg (27.0-31.0); MEAN CORPUSCULAR HGB CONC 33.8 g/dL (32.0-36.0); MEAN PLATELET VOLUME 8.5 fL (7.9-10.8); MONOCYTES # (AUTO) 0.8 10^3/uL (0.0-1.0); MONOCYTES % (AUTO) 8.2 %; NEUTROPHILS # (AUTO) 7.1 10^3/uL (1.5-6.6); NEUTROPHILS % (AUTO) 72.9 %; PLT - PLATELET COUNT 210 10^3/uL (130-450); RED BLOOD COUNT 4.14 10^6/uL (4.20-5.40); RED CELL DISTRIBUTION WIDTH 14.9 % (12.0-15.0); WHITE BLOOD COUNT 9.8 x10^3/uL (4.8-10.8)
--- NOTE | 2018-06-07 07:24 | ANESTHESIA ---
Pre-Anesthesia VS, & Labs - Diagnosis macrosomia - Procedure c section Vital Signs: Temp Pulse Resp BP Pulse Ox 36.5 C 96 20 117/74 98 06/07/18 05:50 06/07/18 05:50 06/07/18 05:50 06/07/18 05:50 06/07/18 05:50 Height 5 ft 2 in Weight (kg) 116.12 kg Body Mass Index 32.9 - NPO >8 hours - Is Patient ?: Yes - Lab Results Lab results reviewed: Yes Home Medications and Allergies Active Medications Cefazolin Sodium/Dextrose (Ancef 2 Gm/50 Ml) 2 gm in 50 mls @ 100 mls/hr IV Q8H KELVIN Lactated Ringer's (Lr) 1,000 mls @ 999 mls/hr IV ONCE ONE Stop: 06/07/18 07:30 Last Admin: 06/07/18 06:40 Dose: 999 mls/hr Pnv95/Ferrous Fumarate/FA [ Tablet] 12/06/17 Allergies/Adverse Reactions: Allergies Allergy/AdvReac Type Severity Reaction Status Date / Time iodine Allergy Edema Verified 01/04/18 14:51 Anes History & Medical History - Anesthetic History Anesthesia Complications: reports: No previous complications Family history of Anesthesia Complications: Denies Family history of Malignant Hyperthermia: Denies - Medical History Cardiovascular: reports: None Pulmonary: reports: None Gastrointestinal: reports: GERD Urinary: reports: None Neuro: reports: None Endocrine/Autoimmune: reports: Other Smoking Status: Never smoker Exam General: Alert, Oriented x3, Cooperative, No acute distress Dental: WNL Mouth Openin Fingerbreadth Neck Mobility: Normal Mallampati classification: III Thyromental Distance: 4-6 cm Respiratory: Lungs clear, Normal breath sounds, No respiratory distress, No accessory muscle use Cardiovascular: Regular rate, Normal S1, Normal S2, No murmurs Mental/Cognitive Status: Alert/Oriented X3, Normal for patient Cognitive Status: Within normal limits Plan Anesthesia Type: Spinal Consent for Procedure(s) Verified and Reviewed: Yes Code Status: Attempt Resuscitation ASA classification: 2-Mild systemic disease Is this case an emergency?: No
--- NOTE | 2018-06-07 09:05 | OPERATIVE REPORT ---
Operative Report - General Admit Date: 06/07/18 Procedure Date: 06/07/18 Planned Procedure: Primary low transverse Pre-Op Diagnosis: macrosomia Procedure Performed: same Post Op Diagnosis: macrosomia, right paratubal cyst - Procedure Note Primary Surgeon: Aster Secondary Surgeon: assist = Yuriy Alexandre CNM Anesthesia Technique: Spinal Pathology: placenta and right paratubal cyst IV Fluids (mL): 1,000 Estimated Blood Loss (mL): 700 Urine Output (mL): 400
[2018-06-07] MEDS ORDERED: KETOROLAC 30 MG/ML VIAL IVP ONE (09:06)
[2018-06-07] MEDS ORDERED: ceFAZolin 1 GM VIAL IV ONE (09:06)
[2018-06-07] MEDS ORDERED: MAGNESIUM HYDROXIDE 2,400 MG/30 ML UDC PO PRN (09:06)
[2018-06-07] MEDS ORDERED: METHYLERGONOVINE 0.2 MG/ML AMP IVP ONE (09:06)
[2018-06-07] MEDS ORDERED: SODIUM CHLORIDE FLUSH 0.9% 10 ML SYRINGE IVP PRN (09:06)
[2018-06-07] MEDS ORDERED: ONDANSETRON ODT 4 MG TABLET TL PRN (09:06)
[2018-06-07] MEDS ORDERED: WITCH HAZEL/GLYCERIN 1 EACH MED..PAD TOP PRN (09:06)
[2018-06-07] MEDS ORDERED: ONDANSETRON 4 MG/2 ML VIAL IVP ONE (09:06)
[2018-06-07] MEDS ORDERED: OXYTOCIN 10 UNIT/ML VIAL IV ONE (09:06)
[2018-06-07] MEDS ORDERED: HYDROCORTISONE/PRAMOXINE 10 GM PR PRN (09:06)
[2018-06-07] MEDS ORDERED: diphenhydrAMINE 25 MG CAPSULE PO PRN (09:06)
[2018-06-07] MEDS ORDERED: OXYTOCIN/SODIUM CHLORIDE 500 ML IV ONE (09:11)
[2018-06-07] MEDS ORDERED: CALCIUM CARBONATE CHEW 500 MG TABLET PO PRN (09:11)
[2018-06-07] MEDS ORDERED: SODIUM CHLORIDE 0.9% 500 ML IV ONE (09:21)
[2018-06-07] MEDS ORDERED: LACTATED RINGERS 500 ML IV ONE (09:21)
[2018-06-07 09:38] LABS: BASOPHILS % (AUTO) 0.4 %; EOSINOPHILS # (AUTO) 0.1 10^3/uL (0.0-0.7); EOSINOPHILS % (AUTO) 0.6 %; HGB - HEMOGLOBIN 13.1 g/dL (12.0-16.0); LYMPHOCYTES # (AUTO) 1.6 10^3/uL (1.5-3.5); LYMPHOCYTES % (AUTO) 15.7 %; MEAN CORPUSCULAR HEMOGLOBIN 31.2 pg (27.0-31.0); MEAN CORPUSCULAR HGB CONC 34.3 g/dL (32.0-36.0); MEAN CORPUSCULAR VOLUME 90.9 fL (81.0-99.0); MEAN PLATELET VOLUME 8.5 fL (7.9-10.8); MONOCYTES # (AUTO) 0.7 10^3/uL (0.0-1.0); MONOCYTES % (AUTO) 7.2 %; NEUTROPHILS # (AUTO) 7.7 10^3/uL (1.5-6.6); NEUTROPHILS % (AUTO) 76.1 %; PLT - PLATELET COUNT 200 10^3/uL (130-450); RED CELL DISTRIBUTION WIDTH 14.9 % (12.0-15.0); WHITE BLOOD COUNT 10.1 x10^3/uL (4.8-10.8)
--- NOTE | 2018-06-07 10:31 | OPERATIVE REPORT ---
DATE OF SERVICE: 06/07/2018 Physician: Ellie Rodarte MD PREOPERATIVE DIAGNOSES 1. macrosomia. 2. Intrauterine at 39 weeks. POSTOPERATIVE DIAGNOSES 1. macrosomia. 2. Right paratubal cyst. PROCEDURE PERFORMED: Primary low-transverse section. SURGEON: Ellie Rodarte MD INTERNAL CORROSION SPECIALIST: Hiral Alexandre CNM ANESTHESIA: Spinal. ESTIMATED BLOOD LOSS: 700 mL IV FLUIDS: 1 liter of crystalloid. URINE OUTPUT: 400 mL, clear. COUNTS: Correct x2. COMPLICATIONS: None apparent. DISPOSITION: Stable to her delivery room. Prophylaxis SCDs to bilateral lower extremities. Ancef 2 grams prior to incision. FINDINGS 1. Clear amniotic fluid. 2. Liveborn male, weight 11 pounds 6 ounces, Apgars 8 at 1 minute and 9 at 5 minutes. 3. Right paratubal cyst, approximately 14 x 6 mm, with hemorrhagic internal appearance. Otherwise n ormal uterus, ovaries and fallopian tubes. SPECIMENS: Placenta and paratubal cyst to pathology. COUNSELING: See H and P for counseling details. The patient did decline a trial of labor. Her last ultrasound showed an 11-pound baby. DESCRIPTION OF PROCEDURE: The patient was brought to the operating room where she underwent spinal a nesthesia. She was placed in a left tilt. A Hebert catheter was placed. She was prepped and draped in the usual sterile fashion. A scalpel was used to make a Pfannenstiel skin incision about 4 cm sup erior to the pubic bone because this is where the cosmetic crease in her abdomen was located. This w as carried down to the fascia, which was nicked in the midline bilaterally. The fascial incision was extended laterally using Cardona scissors. Kochers were placed on the inferior margin of the fascial i ncision and the fascia was bluntly and sharply dissected off of the underlying rectus. The Kochers w ere replaced superiorly and the same was performed. The peritoneum was bluntly entered. Room was de emed to be adequate. A bladder retractor was placed. A transverse incision was made in the lower ut erine segment and carried down until the membranes were identified. The incision was extended latera lly by applying cranial and caudal pressure. The membranes were ruptured and the surgeon's hand was placed into the uterine cavity. The head was elevated and then delivered with fundal pressure. There was one loose nuchal cord. The shoulders and body were delivered without incident. The cord was left pulsating for 30 seconds and then it was clamped x2 and cut. The baby was handed off to [facility] school program director in waiting. Cord blood was obtained for typing. The placenta was then delivered with external uterine massage and cord traction. It was intact. The uterine cavity was curetted with a dry laparotomy with no return of membranes. The uterus was then closed with a running layer of 0 Raúl ryl. A second imbricating layer of 0 Vicryl was performed. The gutters were irrigated and the natali l anatomy, except for the paratubal cyst was appreciated. This was on a stalk of mesosalpinx and it was easy to amputate with the Bovie. This was sent to pathology. Hemostasis was excellent on the ut erine incision, rectus and fascia. The fascia was closed with a running layer of 0 Vicryl. The subc utaneous tissues were copiously irrigated. There were no significant bleeders here. The subcutaneou s tissues were reapproximated with interrupted sutures of 2-0 Vicryl. The skin was closed with a run madeleine subcuticular of 4-0 Monocryl. Dermabond was then applied. Fundal massage yielded a normal amou nt of blood and clot. The patient initially had some mild atony after delivery of the infant and so she did receive a dose of Methergine intraoperatively. The blood was washed from her body and she wa s returned to the recovery room in good condition. TD: 06/07/2018 09:48
[2018-06-07] MEDS ORDERED: PROMETHAZINE INJ 12.5 MG in SODIUM CHLORIDE 0.9% 50 ML IV ONE (11:15)
[2018-06-07] MEDS: IBUPROFEN 600 MG TABLET PO SCH ×3 (12:03→21:37)
[2018-06-07] MEDS: oxyCODONE 5 MG TABLET PO PRN ×3 (13:41→23:06)
[2018-06-07] MEDS: DOCUSATE SODIUM 100 MG CAPSULE PO SCH ×2 (13:41→21:37)
[2018-06-07] MEDS: FAMOTIDINE 20 MG TABLET PO SCH ×2 (13:41→21:38)
[2018-06-07] MEDS: LACTATED RINGERS 1,000 ML IV SCH ×2 (15:06→20:24)
[2018-06-07] MEDS: SODIUM CHLORIDE FLUSH 0.9% 10 ML SYRINGE IVP SCH ×2 (17:15→20:31)
--- NOTE | 2018-06-07 18:00 | CT Report ---
Reason: Progressive hirsutism, ADRENAL CT ONLY Procedure Date: 06/07/2018 Accession Number: [id number] / [id number] Procedure: CT - Abdomen W/O CPT Code: FULL RESULT: EXAM: CT ABDOMEN EXAM DATE: 06/07/2018 05:45 PM. CLINICAL HISTORY: Hirsutism. COMPARISON: OB F/U OR REPEAT 05/30/2018 4:15 PM. TECHNIQUE: Routine helical CT imaging was performed through the abdomen. IV contrast: No Enteric contrast: No. Reconstruction: Coronal and sagittal. In accordance with CT protocol optimization, one or more of the following dose reduction techniques were utilized for this exam: automated exposure control, adjustment of mA and/or KV based on patient size, or use of iterative reconstructive technique. FINDINGS: Lung Bases: Unremarkable. Solid organs: Noncontrast imaging of the solid organs demonstrates no acute findings. The adrenal glands are normal in appearance with no discrete nodule or abnormal thickening demonstrated. Punctate 1 mm nonobstructing stones are suggested in the lower pole of the kidneys bilaterally. There is no hydronephrosis. Gallbladder/Bile Ducts: Unremarkable. Peritoneal Cavity/Bowel: The visualized bowel loops are grossly intact. There is small scattered free air seen in the anterior peritoneum. Vasculature: No aneurysms or other significant abnormality. Bones: No significant abnormality. Other: None. IMPRESSION: 1. Normal adrenal glands. No nodule or mass. 2. Small scattered free air in the anterior abdomen presumably related to recent pelvic surgery. 3. Bilateral nephrolithiasis without hydronephrosis. RADIA The above findings were discussed with Ellie Rodarte by Dr. Tammy Armendariz at 17:59 hrs on 06/07/18.
[2018-06-07] MEDS ORDERED: ONDANSETRON 4 MG/2 ML VIAL IVP PRN (20:19)
[2018-06-07] MEDS ORDERED: ONDANSETRON 4 MG/2 ML VIAL ONE (20:20)
[2018-06-07] MEDS ORDERED: PROMETHAZINE INJ 12.5 MG in SODIUM CHLORIDE 0.9% 50 ML IV PRN (23:16)
[2018-06-08] MEDS: IBUPROFEN 600 MG TABLET PO SCH ×4 (03:10→20:18)
[2018-06-08] MEDS: oxyCODONE 5 MG TABLET PO PRN ×6 (03:10→21:37)
[2018-06-08] MEDS: LACTATED RINGERS 1,000 ML IV SCH (07:42)
[2018-06-08] MEDS: FAMOTIDINE 20 MG TABLET PO SCH ×2 (08:30→21:37)
[2018-06-08] MEDS: DOCUSATE SODIUM 100 MG CAPSULE PO SCH ×2 (08:30→20:18)
--- NOTE | 2018-06-08 09:16 | PROVIDER PROGRESS NOTE ---
Subjective - Subjective Subjective: S: feeling well. Pain is mild. and ambulating well. Nausea and vomiting yesterday has resolved. No heavy bleeding. Hebert just removed. O: AVSS Alert, smiling, NAD Abd soft, approp tender, ND Fundus firm, NT, 2cm below U Incision c/d/i without erythema or induration Postop hct 38-->[address] normal A/P: 27yo P1 POD #1 s/p primary for macrosomia 11#6oz baby. Doing well postop and anticipate routine care. Progressive (over 2y) big change in weight gain and hursutism and striae. Adrenal CT is normal. Testosterone, DHEAs, and 17-OH-P are pending. Tolerating surgery well. Will do ifeanyi eval too. Objective - Vital Signs/Intake & Output Vital Signs: Vital Signs x48h Temp Pulse Resp BP Pulse Ox 06/08/18 04:20 106/64 06/08/18 03:22 98.4 F 84 16 106/56 L 97 Intake & Output: Intake & Output 06/05/18 06/06/18 06/07/18 06/08/18 23:59 23:59 23:59 23:59 Intake Total 1550.5 1550 Output Total 925 1100 Balance 625.5 450 - Lab Results Fish Bones: 06/07/18 09:29 Other Labs: Lab Results x24hrs 06/07/18 Range/Units 09:29 WBC 10.1 (4.8-10.8) x10^3/uL RBC 4.20 (4.20-5.40) 10^6/uL Hgb 13.1 (12.0-16.0) g/dL Hct 38.1 (37.0-47.0) % MCV 90.9 (81.0-99.0) fL MCH 31.2 H (27.0-31.0) pg MCHC 34.3 (32.0-36.0) g/dL RDW 14.9 (12.0-15.0) % Plt Count 200 (130-450) 10^3/uL MPV 8.5 (7.9-10.8) fL Neut # (Auto) 7.7 H (1.5-6.6) 10^3/uL Lymph # (Auto) 1.6 (1.5-3.5) 10^3/uL Major # (Auto) 0.7 (0.0-1.0) 10^3/uL Eos # (Auto) 0.1 (0.0-0.7) 10^3/uL Baso # (Auto) 0.0 (0.0-0.1) 10^3/uL Absolute Nucleated RBC 0.00 x10^3/uL Nucleated RBC % 0.0 /100WBC
[2018-06-08] MEDS: SIMETHICONE CHEW 80 MG TABLET PO PRN ×3 (10:15→17:52)
[2018-06-08] MEDS: SODIUM CHLORIDE FLUSH 0.9% 10 ML SYRINGE IVP SCH (14:03)
[2018-06-09] MEDS: oxyCODONE 5 MG TABLET PO PRN ×6 (01:30→23:47)
[2018-06-09] MEDS: IBUPROFEN 600 MG TABLET PO SCH ×4 (01:31→21:54)
[2018-06-09] MEDS: DOCUSATE SODIUM 100 MG CAPSULE PO SCH ×2 (09:05→21:54)
[2018-06-09] MEDS: SIMETHICONE CHEW 80 MG TABLET PO PRN ×3 (10:54→19:01)
--- NOTE | 2018-06-09 12:36 | PROVIDER PROGRESS NOTE ---
Subjective - Subjective Subjective: Doing well except for nipple pain with . Otherwise no changes. Exam is unchanged. Assessment and plan is unchanged. Pt prefers dc home tomorrow so she can get more support today. Will do ifeanyi eval at 8w PP. Objective - Vital Signs/Intake & Output Vital Signs: Vital Signs x48h Temp Pulse Resp BP Pulse Ox 06/09/18 07:50 97.3 F L 82 18 114/68 98 06/09/18 06:06 97.5 F L 83 15 97/50 L 96 Intake & Output: Intake & Output 06/06/18 06/07/18 06/08/18 06/09/18 23:59 23:59 23:59 23:59 Intake Total 1550.5 1550 Output Total 925 2025 Balance 625.5 -475 - Lab Results Fish Bones: 06/07/18 09:29
[2018-06-09] MEDS: FAMOTIDINE 20 MG TABLET PO SCH (15:09)
[2018-06-10] MEDS: oxyCODONE 5 MG TABLET PO PRN ×3 (04:18→11:38)
[2018-06-10] MEDS: FAMOTIDINE 20 MG TABLET PO SCH ×2 (04:19→08:34)
--- NOTE | 2018-06-10 05:48 | Discharge Plan ---
Discharge Plan Disposition: Home, Self Care Condition: Good Prescriptions: oxyCODONE [Roxicodone] 5 - 10 mg PO Q4HR PRN #20 tablet PRN Reason: moderate to severe pain Docusate Sodium 100 mg PO BID PRN #60 capsule PRN Reason: to soften stool Ibuprofen [Motrin] 600 mg PO Q6H PRN #60 tablet PRN Reason: Pain Lidocaine 120 gm TP Q4H PRN #1 oint...g. PRN Reason: nipple pain Diet: Regular Activity Restrictions: Activity as Tolerated Shower Restrictions: No Driving Restrictions: Yes (not while on oxycodone) Additional Instructions or Follow Up instructions: 1. Follow up in 1 week and 6 weeks for checks at [facility] 2. 8 weeks post do your urine and saliva testing. Urine test will be collected over 24 hours. Saliva test should be done at bedtime. Bring these into the lab the following day. 3. Follow up at [facility] with Dr. Guzman in 10w to review test results. No Smoking: If you smoke, Please STOP! Call for help. Follow-up with: Heather Goldman DO [Provider Admit Priv/Credential] -
[2018-06-10] MEDS: IBUPROFEN 600 MG TABLET PO SCH ×2 (05:51→11:39)
[2018-06-10] MEDS ORDERED: LIDOCAINE JELLY 2% 30 ML TUBE TOP PRN (07:07)
[2018-06-10] MEDS: DOCUSATE SODIUM 100 MG CAPSULE PO SCH (08:18)
[2018-06-10] MEDS: SIMETHICONE CHEW 80 MG TABLET PO PRN (08:19)
--- NOTE | 2018-06-10 09:48 | DISCHARGE SUMMARY ---
Physician: Ellie Rodarte MD DATE OF ADMISSION: 06/07/2018 DATE OF DISCHARGE: 06/10/2018 ADMISSION DIAGNOSES 1. Intrauterine at 39 weeks and 1 day. 2. macrosomia. 3. Hirsutism. DISCHARGE DIAGNOSES 1. macrosomia. 2. Hirsutism. OPERATIONS AND PROCEDURES, 06/07/2018: Primary low transverse section for macrosomia. The baby's weight was 11 pounds 6 ounces. HOSPITAL COURSE: The patient was admitted for a scheduled due to her macrosomia. This was completed under spinal anesthesia and was uncomplicated. The patient's postoperative course was rem arkable for nipple pain while . Otherwise, she did very well. By postoperative day 3, she was requesting discharge home. She was eating, ambulating, and urinating without problems. Ther e was no heavy bleeding. Her incisional pain was under good control. She was having quite a bit of nipple pain, for which she received a lot of breast feeding support. I did start her on some lidocai ne cream to help with this. The patient also has had progressive hirsutism during this without clitoromegaly. She has had a 100 pound weight gain in the past 2 years. She has a PCOS diagnosis. However, this florid kristy ght gain and hair growth are not common for PCOS, and so I chose to do a more expanded workup. The p atbeata has lab work pending including a DHEAS, testosterone free and total, and a 17-hydroxyprogester one. She underwent an adrenal ultrasound while inpatient and this was normal. At 8 weeks , she has collection kits to perform salivary cortisol level at bedtime, as well as a 24-hour cortiso l urine collection. The patient will follow up with Dr. Goldman at 10 weeks to review her e ndocrinology results. She is aware that the ultimate diagnosis will likely be polycystic ovarian syn drome, considering the lack of clitoromegaly. The importance of weight loss and a healthy lifestyle were emphasized. DISCHARGE EXAMINATION VITAL SIGNS: She is afebrile with normal vital signs. GENERAL: She is alert and smiling, in no apparent distress. ABDOMEN: Soft, nontender, nondistended. Fundus firm and nontender at the umbilicus. Incision clean , dry and intact without erythema or induration. EXTREMITIES: Lower extremities with trace edema bilaterally. DISCHARGE MEDICATIONS 1. Continue vitamins. 2. Ibuprofen p.r.n. pain. 3. Oxycodone p.r.n. severe pain, #20, no refills. 4. Lidocaine gel to nipples q.4 hours p.r.n. The patient is to wash this off prior to . 5. Colace p.r.n. to soften stool. FOLLOWUP: At 1 week and 6 weeks for visits and at 10 weeks for lab followup. DISCHARGE PRECAUTIONS: Routine and postoperative precautions given. DISPOSITION: Discharge to home. CONDITION: Good. TD: 06/10/2018 07:38
[2018-06-10 16:20] VITALS: BP 117/73
[2018-06-13 17:11] LABS: FREE TESTOSTERONE 13.9 pg/mL (0.1-6.4)
== END 2018-06-10 17:12 | disposition home or self-care (01) | DRG 788 ==
LOC: FBP 05:32
PROVIDERS: ADMIT Obstetrics & Gynecology; ATTEND Obstetrics & Gynecology
PROC: 0MB Bursae and Ligaments, Excision (ICD-10-PCS; 2018-06-07)
PROC: 10D00Z1 Extraction of Products of Conception, Low, Open Approach (ICD-10-PCS; principal; 2018-06-07 07:30)
DX: O36.63X0 Maternal care for excessive fetal growth, third trimester, not applicable or unspecified (principal); Z37.0 Single live birth; O62.2 Other uterine inertia; O99.89 Other specified diseases and conditions complicating pregnancy, childbirth and the puerperium; N83.8 Other noninflammatory disorders of ovary, fallopian tube and broad ligament; Z3A.39 39 weeks gestation of pregnancy; O92.29 Other disorders of breast associated with pregnancy and the puerperium; O99.72 Diseases of the skin and subcutaneous tissue complicating childbirth; L68.0 Hirsutism; O99.284 Endocrine, nutritional and metabolic diseases complicating childbirth; E28.2 Polycystic ovarian syndrome; O99.214 Obesity complicating childbirth; E66.9 Obesity, unspecified
CPT/HCPCS: 36415; 74150; 81599; 82627; 84270; 84402; 84403; 85025; 86850; 86900; 86901